=== PATIENT | female | born 1995 | race Caucasian/White ===

== ENCOUNTER 2016-11-06 18:29 | Emergency (ER) | payer OTHER ==
[2016-11-06 19:13] LABS: PH,URINE 6.5 (5.0-8.0); URINE BILIRUBIN NEGATIVE (NEGATIVE); URINE BLOOD NEGATIVE (NEGATIVE); URINE GLUCOSE (UA) NEGATIVE (NEGATIVE); URINE LEUKOCYTE ESTERASE NEGATIVE (NEGATIVE); URINE NITRITE NEGATIVE (NEGATIVE); URINE PROTEIN NEGATIVE (NEGATIVE); URINE UROBILINOGEN NORMAL (0-1 mg/dl)
[2016-11-06 19:15] LABS: URINE APPEARANCE CLEAR; URINE COLOR YELLOW
[2016-11-06 19:16] LABS: HCG,QUALITATIVE URINE NEGATIVE
[2016-11-08 14:23] LABS: CHLAMYDIA BD Negative (Negative); N.GONORRHOEAE BD Negative (Negative); SOURCE Urine (())
== END 2016-11-06 20:04 | disposition home or self-care (01) ==
LOC: ED 18:29
DX: R10.9 Unspecified abdominal pain (principal)